=== PATIENT | female | born 1985 | race Caucasian/White ===

== ENCOUNTER → 2023-10-27 08:52 | Outpatient (REF) | payer BC, SELFPAY | LOC: RAD 08:52 | PROVIDERS: ATTENDING PHYSICIAN Advanced Practice Midwife; FAMILY PHYSICIAN Family Medicine | DX: Z13.820 Encounter for screening for osteoporosis (principal) | CPT/HCPCS: 77080 ==

== ENCOUNTER → 2023-11-17 09:40 | Outpatient (REF) | payer BC, SELFPAY | LOC: HWWDC 09:40 | PROVIDERS: ATTENDING PHYSICIAN Advanced Practice Midwife; FAMILY PHYSICIAN Family Medicine | DX: Z12.31 Encounter for screening mammogram for malignant neoplasm of breast (principal) | CPT/HCPCS: 77063; 77067 ==

== ENCOUNTER 2024-01-02 06:32 | Outpatient (RCR) | payer BC, SELFPAY | END 2024-01-02 23:59 | disposition home or self-care (01) | LOC: RPT 06:32 | PROVIDERS: ATTENDING PHYSICIAN Student in an Organized Health Care Education/Training Program; FAMILY PHYSICIAN Family Medicine | DX: M54.16 Radiculopathy, lumbar region (principal); Z73.6 Limitation of activities due to disability | CPT/HCPCS: 97110; 97162 ==

== ENCOUNTER 2024-01-31 08:06 | Outpatient (RCR) | payer BC, SELFPAY | END 2024-01-31 23:59 | disposition home or self-care (01) | LOC: RPT 08:06 | PROVIDERS: ATTENDING PHYSICIAN Student in an Organized Health Care Education/Training Program; FAMILY PHYSICIAN Family Medicine | DX: M54.16 Radiculopathy, lumbar region (principal); Z73.6 Limitation of activities due to disability | CPT/HCPCS: 97110 ==

== ENCOUNTER 2024-03-06 07:18 | Outpatient (RCR) | payer BC, SELFPAY | END 2024-03-06 23:59 | disposition home or self-care (01) | LOC: RPT 07:18 | PROVIDERS: ATTENDING PHYSICIAN Obstetrics & Gynecology; FAMILY PHYSICIAN Family Medicine | DX: R35.0 Frequency of micturition (principal); R39.15 Urgency of urination; N39.3 Stress incontinence (female) (male); M62.81 Muscle weakness (generalized); Z73.6 Limitation of activities due to disability | CPT/HCPCS: 97163; 97530 ==

== ENCOUNTER 2024-04-15 15:09 | Outpatient (RCR) | payer BC, SELFPAY | END 2024-04-15 23:59 | disposition home or self-care (01) | LOC: RPT 15:09 | PROVIDERS: ATTENDING PHYSICIAN Obstetrics & Gynecology; FAMILY PHYSICIAN Family Medicine | DX: R35.0 Frequency of micturition (principal); R39.15 Urgency of urination; N39.3 Stress incontinence (female) (male); M62.81 Muscle weakness (generalized); Z73.6 Limitation of activities due to disability | CPT/HCPCS: 97014; 97110; 97112; 97140; 97530 ==

== ENCOUNTER 2024-05-06 12:01 | Outpatient (RCR) | payer BC, SELFPAY | END 2024-05-06 23:59 | disposition home or self-care (01) | LOC: RPT 12:01 | PROVIDERS: ATTENDING PHYSICIAN Obstetrics & Gynecology; FAMILY PHYSICIAN Family Medicine | DX: R35.0 Frequency of micturition (principal); R39.15 Urgency of urination; N39.3 Stress incontinence (female) (male); M62.81 Muscle weakness (generalized); Z73.6 Limitation of activities due to disability | CPT/HCPCS: 97014; 97110; 97140; 97530 ==

== ENCOUNTER 2024-06-12 14:07 | Outpatient (RCR) | payer BC, SELFPAY | END 2024-06-12 23:59 | disposition home or self-care (01) | LOC: RPT 14:07 | PROVIDERS: ATTENDING PHYSICIAN Obstetrics & Gynecology; FAMILY PHYSICIAN Family Medicine | DX: R35.0 Frequency of micturition (principal); R39.15 Urgency of urination; N39.3 Stress incontinence (female) (male); M62.81 Muscle weakness (generalized); Z73.6 Limitation of activities due to disability | CPT/HCPCS: 97014; 97110; 97112; 97530 ==

== ENCOUNTER 2024-06-21 15:11 | Outpatient (RCR) | payer BC, SELFPAY | END 2024-06-21 23:59 | disposition home or self-care (01) | LOC: RPT 15:11 | PROVIDERS: ATTENDING PHYSICIAN Obstetrics & Gynecology; FAMILY PHYSICIAN Family Medicine | DX: R35.0 Frequency of micturition (principal); R39.15 Urgency of urination; N39.3 Stress incontinence (female) (male); M62.81 Muscle weakness (generalized); Z73.6 Limitation of activities due to disability | CPT/HCPCS: 97014; 97110; 97112; 97530 ==

== ENCOUNTER 2024-08-15 17:10 | Outpatient (RCR) | payer BC, SELFPAY | END 2024-08-16 14:06 | disposition home or self-care (01) | LOC: RPT 17:10 | PROVIDERS: ATTENDING PHYSICIAN Obstetrics & Gynecology; FAMILY PHYSICIAN Family Medicine | DX: R35.0 Frequency of micturition (principal); R39.15 Urgency of urination; N39.3 Stress incontinence (female) (male); M62.81 Muscle weakness (generalized); Z73.6 Limitation of activities due to disability | CPT/HCPCS: 97110; 97530 ==